=== PATIENT | male | born 1970 | race Asian ===

== ENCOUNTER 2017-11-29 09:04 | Emergency (ER) | payer OTHER ==
[2017-11-29 09:16] VITALS: BP 140/91
[2017-11-29] MEDS ORDERED: MECLIZINE 12.5 MG TABLET PO STA (09:19)
[2017-11-29] MEDS ORDERED: DEXAMETHASONE 10 MG/ML VIAL PO STA (09:19)
--- NOTE | 2017-11-29 09:22 | ED Physician Documentation ---
History of Present Illness - Stated complaint Stated Complaint: DIZZY - Chief complaint Chief Complaint: General - History obtained from History obtained from: Patient - History of Present Illness Timing: Today - Additonal information Additional information: 47-year-old male who was previously well has developed acute vertigo on awakening this morning. He states that he awoke felt dizzy when he opened his eyes and try to go back to sleep thinking it would resolve and this did not. He has a lot of dizziness when he got up to go to the bathroom and when he moves his head at all he is very dizzy. He has not had this happen recently but he has had this happen in the past and had a lot of wax in his ear that was removed and resolved his symptoms. Review of Systems Constitutional: denies: Fever, Chills, Myalgias Eyes: denies: Decreased vision Ears: denies: Loss of hearing, Ear pain, Drainage/discharge, Tinnitus/ringing Nose: denies: Rhinorrhea / runny nose, Congestion Throat: denies: Sore throat Respiratory: denies: Cough GI: reports: Nausea. denies: Abdominal Pain, Vomiting : denies: Dysuria, Frequency Skin: denies: Rash Musculoskeletal: denies: Neck pain, Back pain, Extremity pain PD PAST MEDICAL HISTORY - Present Medications Home Medications: Ambulatory Orders Medication Instructions Recorded Confirmed Azithromycin [Zithromax] 250 mg PO DAILY #6 tablet 11/29/17 Meclizine HCl 25 mg PO Q6HR PRN #20 tab.chew 11/29/17 - Allergies Allergies/Adverse Reactions: Allergies Allergy/AdvReac Type Severity Reaction Status Date / Time Penicillins Allergy Rash Verified 11/29/17 09:19 PD ED PE NORMAL - Vitals Vital signs reviewed: Yes (hypertensive) - General General: Alert and oriented X 3, No acute distress, Well developed/nourished - HEENT HEENT: Atraumatic, PERRL, EOMI, Other (both TM's are with inflamation and distortion of the landmarks. There is no cerumen. There is fine nystagmus bilaterally ) - Neck Neck: Supple, no meningeal sign, No bony TTP - Cardiac Cardiac: RRR, No murmur - Respiratory Respiratory: No respiratory distress, Clear bilaterally - Abdomen Abdomen: Soft, Non tender - Back Back: No CVA TTP, No spinal TTP - Derm Derm: Normal color, Warm and dry, No rash - Extremities Extremities: No deformity, No edema - Neuro Neuro: Alert and oriented X 3, plastic mixer 2-12 intact, No motor deficit, No sensory deficit, Normal speech Eye Opening: Spontaneous Motor: Obeys Commands Verbal: Oriented GCS Score: 15 - Psych Psych: Normal mood, Normal affect Results - Vitals Vitals: Vital Signs - 24 hr 11/29/17 09:13 Temperature 36.6 C Heart Rate 67 Respiratory 14 Rate Blood Pressure 140/91 H O2 Saturation 99 Oxygen O2 Source Room air PD MEDICAL DECISION MAKING - ED course Complexity details: considered differential, d/w patient ED course: 47 y/o male with acute labyrinthitis has inflammation in both TM's without symptoms of infection. He is administered meclizine and dexamethasone and we will hold off on antibiotic unless symptoms develop. - Sepsis Event Vital Signs: Vital Signs - 24 hr 11/29/17 09:13 Temperature 36.6 C Heart Rate 67 Respiratory 14 Rate Blood Pressure 140/91 H O2 Saturation 99 Oxygen O2 Source Room air Departure - Departure Disposition: 01 Home, Self Care Clinical Impression: Acute labyrinthitis Qualifiers: Laterality: bilateral Qualified Code(s): H83.03 - Labyrinthitis, bilateral Otitis media Qualifiers: Otitis media type: unspecified Chronicity: acute Qualified Code(s): H66.90 - Otitis media, unspecified, unspecified ear Instructions: ED Labyrinthitis, ED Ear Infec Wait See Abx Tx Follow-Up: [facility] [Provider Group] Prescriptions: Meclizine HCl 25 mg PO Q6HR PRN #20 tab.chew PRN Reason: Dizziness Azithromycin [Zithromax] 250 mg PO DAILY #6 tablet
[2017-11-29] MEDS ORDERED: CHERRY SYRUP 10 ML UDC PO ONE (09:25)
== END 2017-11-29 09:35 | disposition home or self-care (01) ==
LOC: ED 09:04
DX: H83.03 Labyrinthitis, bilateral (principal); H66.90 Otitis media, unspecified, unspecified ear
CPT/HCPCS: 99283; A9270

== ENCOUNTER 2017-12-05 11:26 | Emergency (ER) | payer OTHER ==
--- NOTE | 2017-12-05 12:54 | ED Physician Documentation ---
PD HPI HEENT - Stated complaint Stated Complaint: DIZZY - Chief complaint Chief Complaint: General - History obtained from History obtained from: Patient - History of Present Illness Timing - onset: How many weeks ago (2) Timing - duration: Weeks Timing - details: Still present, Intermittant Location: Other (dizzy with position change and head movement, lessens after few seconds.) Improves: Medication (seemed some better first few days after seen, then same again.) Worsens: Position Associated symptoms: Other (some feeling of sinus pressure.). No: Fever, Congestion, Cough Similar symptoms before: Diagnosis (seen in ER 5 days ago and Rx Meclizine and given single dose of steroid.) Recently seen: Emergency Dept Review of Systems Constitutional: denies: Fever, Myalgias Nose: reports: Sinus pressure / pain. denies: Rhinorrhea / runny nose, Congestion Throat: denies: Sore throat Respiratory: denies: Cough GI: denies: Nausea, Vomiting, Diarrhea Neurologic: denies: Focal weakness, Numbness, Difficulty speaking, Near syncope PD PAST MEDICAL HISTORY - Past Medical History Past Medical History: Yes Respiratory: Sleep apnea, CPAP use - Past Surgical History General: Other - Present Medications Home Medications: Ambulatory Orders Medication Instructions Recorded Confirmed Meclizine HCl 25 mg PO Q6HR PRN #20 tab.chew 11/29/17 Cetirizine [ZyrTEC] 10 mg PO DAILY #15 tablet 12/05/17 Dexamethasone [Decadron] 4 mg PO DAILY #5 tablet 12/05/17 - Allergies Allergies/Adverse Reactions: Allergies Allergy/AdvReac Type Severity Reaction Status Date / Time Penicillins Allergy Rash Verified 12/05/17 11:34 - Social History Does the pt smoke?: No Smoking Status: Never smoker Does the pt drink ETOH?: Yes Does the pt have substance abuse?: No - Immunizations Immunizations are current?: Yes PD ED PE NORMAL - Vitals Vital signs reviewed: Yes - General General: Alert and oriented X 3, No acute distress, Well developed/nourished - HEENT HEENT: PERRL, EOMI (mild nystagmus to the left.), Ears normal, Moist mucous membranes, Pharynx benign - Neck Neck: Supple, no meningeal sign, No adenopathy - Cardiac Cardiac: RRR, No murmur - Respiratory Respiratory: Clear bilaterally - Derm Derm: Normal color, Warm and dry - Neuro Neuro: Alert and oriented X 3, board certified family physician 2-12 intact, No motor deficit, No sensory deficit, Normal speech Results - Vitals Vitals: Vital Signs - 24 hr 12/05/17 11:31 Temperature 36.5 C Heart Rate 80 Respiratory 18 Rate Blood Pressure 130/94 H O2 Saturation 98 Oxygen O2 Source Room air PD MEDICAL DECISION MAKING - ED course Complexity details: considered differential (labrynthitis vs. BPPV, does not seem bacterial infection. ), d/w patient Departure - Departure Disposition: 01 Home, Self Care Clinical Impression: Positional vertigo Condition: Stable Record reviewed to determine appropriate education?: Yes Instructions: ED Vertigo Unspecified Follow-Up: [facility] [place] [Provider Group] Prescriptions: Cetirizine [ZyrTEC] 10 mg PO DAILY #15 tablet Dexamethasone [Decadron] 4 mg PO DAILY #5 tablet Comments: The cause of the dizziness may be more inflammatory in the inner ear since the antibiotic did not seem to improve it. We will try cetirizine antihistamine daily for the next week or 2 and also Decadron steroid anti-inflammatory daily for the next 5 days. Continue the meclizine if needed for dizziness. Follow-up with either your primary care or preferably the ENT group in [place] which would be more of a specialist for this type of problem. Call for an appointment. Discharge Date/Time: 12/05/17 13:45
[2017-12-05] MEDS ORDERED: DEXAMETHASONE 10 MG/ML VIAL PO STA (13:16)
[2017-12-05 13:24] VITALS: BP 116/84
[2017-12-05] MEDS ORDERED: CHERRY SYRUP 10 ML UDC PO ONE (13:35)
== END 2017-12-05 13:45 | disposition home or self-care (01) ==
LOC: ED 11:26
DX: H81.10 Benign paroxysmal vertigo, unspecified ear (principal)
CPT/HCPCS: 99283; A9270